=== PATIENT | female | born 1995 | race American Indian/Alaskan Native ===

== ENCOUNTER 2019-06-09 21:46 | Emergency (ER) | payer SELFPAY ==
[2019-06-09 21:57] VITALS: BP 116/75
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
[2019-06-10] MEDS ORDERED: PERCOCET 5/325 PO STA (00:43)
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
== END 2019-06-10 01:06 | disposition home or self-care (01) ==
LOC: ED 21:46
DX: M54.5 Low back pain (principal); M79.652 Pain in left thigh; M79.10 Myalgia, unspecified site; Z79.899 Other long term (current) drug therapy; Z88.0 Allergy status to penicillin; V49.49XA Driver injured in collision with other motor vehicles in traffic accident, initial encounter; Y93.89 Activity, other specified; Y92.410 Unspecified street and highway as the place of occurrence of the external cause; Y99.8 Other external cause status
CPT/HCPCS: 72100; 99283

== ENCOUNTER 2020-12-14 17:54 | Emergency (ER) | payer MEDICAID ==
[2020-12-14] MEDS ORDERED: SODIUM CHLORIDE 0.9% 1000 ML 1,000 ML IV ONE (19:22)
[2020-12-14] MEDS ORDERED: ONDANSETRON 4 MG/2 ML INJ IV ONE (19:22)
[2020-12-14] MEDS ORDERED: HYOSCYAMINE SUBL 0.125 MG TAB SL ONE (19:22)
--- NOTE | 2020-12-14 19:23 | Emergency Department Report ---
ED N/V/D HPI - General Chief complaint: Nausea/Vomiting/Diarrhea Stated complaint: VOMITING/ABD PAIN/BACK PAIN Time Seen by Provider: 12/14/20 19:11 Source: patient Mode of arrival: Ambulatory Limitations: No Limitations - History of Present Illness Initial comments: Patient is a 25-year-old female presents emergency room complaints of nausea, vomiting, diarrhea that began at 3 AM this morning. She states that she has generalized abdominal cramping, back pain, dysuria. She denies any sick contacts, recent travel, water from a different source, recent camping. She states that she did have a Z-Tyron a couple of weeks ago for a URI. She denies any fever, chills, hematochezia, melena, hematemesis, pus in the stool. She has a past medical history of arthritis and Sjogren's. Allergy to penicillin. She has a Nexplanon for control. - Related Data Previous Rx's Medication Instructions Recorded Last Taken Type Ketorolac [Toradol] 10 mg PO Q6H PRN #15 tablet 06/10/19 Unknown Rx methOCARBAMOL [Robaxin TAB] 750 mg PO Q8H PRN #14 tablet 06/10/19 Unknown Rx Ciprofloxacin HCl [Ciprofloxacin 500 mg PO BID 7 Days #14 tab 12/14/20 Unknown Rx TAB] Naproxen 500 mg PO BID PRN #14 tablet 12/14/20 Unknown Rx Promethazine [Phenergan] 25 mg PO Q8HR PRN #10 tab 12/14/20 Unknown Rx Allergies Allergy/AdvReac Type Severity Reaction Status Date / Time Penicillins AdvReac Intermediate Swelling Verified 12/14/20 18:25 ED Review of Systems ROS: Stated complaint: VOMITING/ABD PAIN/BACK PAIN Other details as noted in HPI Comment: All other systems reviewed and negative ED Past Medical Hx - Past Medical History Previous Medical History?: Yes Hx Arthritis: Yes Additional medical history: Lupus - Surgical History Past Surgical History?: No - Social History Smoking Status: Never Smoker Substance Use Type: Alcohol - Medications Home Medications: Home Medications Medication Instructions Recorded Confirmed Last Taken Type Ketorolac [Toradol] 10 mg PO Q6H PRN #15 tablet 06/10/19 Unknown Rx methOCARBAMOL [Robaxin TAB] 750 mg PO Q8H PRN #14 tablet 06/10/19 Unknown Rx Ciprofloxacin HCl [Ciprofloxacin 500 mg PO BID 7 Days #14 tab 12/14/20 Unknown Rx TAB] Naproxen 500 mg PO BID PRN #14 tablet 12/14/20 Unknown Rx Promethazine [Phenergan] 25 mg PO Q8HR PRN #10 tab 12/14/20 Unknown Rx ED Physical Exam - General Limitations: No Limitations General appearance: alert, in no apparent distress - Head Head exam: Present: atraumatic, normocephalic - Eye Eye exam: Present: normal appearance - ENT ENT exam: Present: mucous membranes dry - Respiratory Respiratory exam: Present: normal lung sounds bilaterally. Absent: respiratory distress, wheezes, rales, rhonchi, stridor, chest wall tenderness, accessory muscle use, decreased breath sounds, prolonged expiratory - Cardiovascular Cardiovascular Exam: Present: normal rhythm, tachycardia, normal heart sounds. Absent: systolic murmur, diastolic murmur, rubs, gallop - GI/Abdominal GI/Abdominal exam: Present: soft, normal bowel sounds. Absent: distended, tenderness, guarding, rebound, rigid - Neurological Exam Neurological exam: Present: alert, oriented X3 - Psychiatric Psychiatric exam: Present: normal affect, normal mood - Skin Skin exam: Present: warm, dry, intact ED Course Vital Signs 12/14/20 18:25 Temperature 99.4 F Pulse Rate 114 H Respiratory 20 Rate Blood Pressure 129/72 O2 Sat by Pulse 98 Oximetry ED Medical Decision Making - Lab Data Result diagrams: 12/14/20 19:39 12/14/20 19:39 - Medical Decision Making Patient is a 25-year-old female presents emergency room complaints of nausea, vomiting, diarrhea that began at 3 AM this morning. She states that she has generalized abdominal cramping, back pain, dysuria. She denies any sick contacts, recent travel, water from a different source, recent camping. She states that she did have a Z-Tyron a couple of weeks ago for a URI. She denies any fever, chills, hematochezia, melena, hematemesis, pus in the stool. She has a past medical history of arthritis and Sjogren's. Allergy to penicillin. She has a Nexplanon for control. No abdominal tenderness or CVA tenderness on exam. Initial vitals with mild tachycardia which improved upon repeat. Labs are stable. hCG is negative. UA shows evidence of significant UTI. Patient given 1 L normal saline, Levsin, Zofran, ceftriaxone while in the emergency department and symptoms improved and she was feeling better and ready to go home. She had no further episodes of vomiting or diarrhea while in the emergency department. Patient given prescription for ciprofloxacin, Zofran, naproxen. Advised patient Patient is a 25-year-old female presents emergency room complaints of nausea, vomiting, diarrhea that began at 3 AM this morning. She states that she has generalized abdominal cramping, back pain, dysuria. She denies any sick contacts, recent travel, water from a different source, recent camping. She states that she did have a Z-Tyron a couple of weeks ago for a URI. She denies any fever, chills, hematochezia, melena, hematemesis, pus in the stool. She has a past medical history of arthritis and Sjogren's. Allergy to penicillin. She has a Nexplanon for control. Critical care attestation.: If time is entered above; I have spent that time in minutes in the direct care of this critically ill patient, excluding procedure time. ED Disposition Clinical Impression: Nausea vomiting and diarrhea UTI (urinary tract infection) Qualifiers: Urinary tract infection type: acute cystitis Hematuria presence: with hematuria Qualified Code(s): N30.01 - Acute cystitis with hematuria Disposition: TO HOME OR SELFCARE Is pt being admited?: No Does the pt Need Aspirin: No Condition: Stable Instructions: Urinary Tract Infection, Adult, [id number], Viral Gastroenteritis, Adult Additional Instructions: Please take medication as prescribed. Increase your water intake. Eat a bland liquid diet and slowly advance your diet as tolerated. Follow-up with your primary care doctor for reexamination and to have your urine retested for clearance of bacteria. Return to emergency room for any new or worsening symptoms. Prescriptions: Ciprofloxacin HCl [Ciprofloxacin TAB] 500 mg PO BID 7 Days #14 tab Naproxen 500 mg PO BID PRN #14 tablet PRN Reason: pain Promethazine [Phenergan] 25 mg PO Q8HR PRN #10 tab PRN Reason: Nausea And Vomiting Referrals: OLIVERIO ORTIZ MD [Primary Care Provider] - 2-3 Days Time of Disposition: 21:34 Print Language: MACEDONIAN
[2020-12-14 20:01] LABS: Basophils % (Auto) 0.5 % (0.0-1.8); Eosinophils % (Auto) 0.1 % (0.0-4.3); Hematocrit 39.4 % (30.3-42.9); Hemoglobin 13.3 gm/dl (10.1-14.3); Lymphocytes # (Auto) 0.8 K/mm3 (1.2-5.4); Lymphocytes % (Auto) 11.9 % (13.4-35.0); Mean Corpuscular HGB Conc 34 % (30-34); Mean Corpuscular Volume 86 fl (79-97); Monocytes # (Auto) 0.4 K/mm3 (0.0-0.8); Monocytes % (Auto) 5.4 % (0.0-7.3); Platelet Count 240 K/mm3 (140-440); Red Blood Count 4.58 M/mm3 (3.65-5.03); Red Cell Distribution Width 13.7 % (13.2-15.2)
[2020-12-14 20:18] LABS: Alanine Aminotransferase 9 units/L (7-56); Albumin 4.1 g/dL (3.9-5); BUN/Creatinine Ratio 11; Blood Urea Nitrogen 9 mg/dL (7-17); Calcium 8.9 mg/dL (8.4-10.2); Hemolysis Index 7
[2020-12-14 21:30] LABS: Bacteria,Urine 2+ /HPF (Negative); Bilirubin,Urine NEG (Negative); Blood,Urine NEG (Negative); Color,Urine Amber (Yellow); Mucus,Urine 3+ /HPF; Urobilinogen,Urine < 2.0 mg/dL (<2.0)
[2020-12-14] MEDS ORDERED: cefTRIAXone/NS 1 GM/50 ML 1 GM/50 ML BAG IV ONE (21:33)
[2020-12-14 21:55] VITALS: BP 113/60
== END 2020-12-14 21:53 | disposition home or self-care (01) ==
LOC: ED 17:54
DX: N39.0 Urinary tract infection, site not specified (principal); R11.2 Nausea with vomiting, unspecified; R19.7 Diarrhea, unspecified; M19.91 Primary osteoarthritis, unspecified site; Z79.2 Long term (current) use of antibiotics; Z79.899 Other long term (current) drug therapy; Z88.0 Allergy status to penicillin
CPT/HCPCS: 36415; 80053; 81001; 83690; 84703; 85025; 96361; 96374; 99283; J2405; J7030